=== PATIENT | female | born 1960 | race Caucasian/White ===

== ENCOUNTER 2017-02-28 12:34 | Emergency (ER) | payer SELFPAY ==
[~2017-02-28] VITALS: Ht 175.3 cm; Wt 77.1 kg
[2017-02-28 12:55] VITALS: BP 123/76
== END 2017-02-28 13:45 | disposition home or self-care (01) ==
LOC: ER 12:34
DX: G89.29 Other chronic pain (principal); M54.2 Cervicalgia; Z88.6 Allergy status to analgesic agent; Z88.8 Allergy status to other drugs, medicaments and biological substances; Z91.018 Allergy to other foods